=== PATIENT | male | born 1955 ===

== ENCOUNTER 2024-02-26 22:10 | Observation (INO) | payer BC, OTHER ==
[2024-02-26 22:31] VITALS: BMI 25.5
[2024-02-27] MEDS ORDERED: Dextrose 5% in Water 1,000 ML IV PRN (00:34)
[2024-02-27] MEDS ORDERED: Glucagon 1 MG/ML KIT IM PRN (00:34)
[2024-02-27] MEDS ORDERED: Ondansetron ODT 4 MG TAB PO PRN (00:34)
[2024-02-27] MEDS ORDERED: Dextrose 50% Abboject 50 ML SYRINGE SLOW IVP PRN (00:34)
[2024-02-27] MEDS ORDERED: Meclizine HCl 25 MG TAB PO PRN (00:43)
[2024-02-27 04:02] LABS: #Basophils 0.03 10x3/uL (0.0-0.2); %Basophils 0.4 % (0.0-1.0); %Eosinophils 2.3 % (0.0-10.0); %Lymphocytes 25.6 % (21.0-51.0); %Monocytes 6.4 % (0.0-10.0); %Neutrophils 65.1 % (42.0-75.0); Hematocrit 43.7 % (42.0-52.0); Hemoglobin 14.7 g/dL (14.0-18.0); Mean Corpuscular HGB CONC 33.6 g/dL (32.0-36.0); Mean Corpuscular Hemoglobin 30.7 pg (27.0-31.0); Mean Corpuscular Volume 91.2 fL (78.0-98.0); Mean Platelet Volume 10.7 fL (7.4-10.4); Platelet Count 173 10x3/uL (130-400); RBC Distribution Width 13.7 % (11.5-14.5); Red Blood Cell (RBC) Count 4.79 mill/uL (4.70-6.10)
[2024-02-27 04:22] LABS: Anion Gap 14 mmol/L (10-20); BUN (Urea Nitrogen) 11 mg/dL (8.4-25.7); Calc. Creatinine Clearance 75 mL/min (70-130); Calcium 9.1 mg/dL (7.8-10.44); Carbon Dioxide 23 mmol/L (23-31); Cardiac Risk 3.3 (Less than 4.5); Chloride 109 mmol/L (98-107); Cholesterol 87 mg/dl (< 200 Desired); Estimated GFR 80; Glucose 92 mg/dL (80-115); HDL Cholesterol 26 mg/dL (>60 Neg Risk); LDL Cholesterol, Calculated 37 mg/dL; Potassium 4.4 mmol/L (3.5-5.1); Sodium 142 mmol/L (136-145); Triglycerides 119 mg/dL (Less than 150)
[2024-02-27] MEDS: Enoxaparin 40 MG (0.4 mL) SYRINGE SC SCH (09:19)
[2024-02-27] MEDS: metFORMIN 500 MG TAB PO SCH (09:19)
[2024-02-27] MEDS: Aspirin Chewable 81 MG TAB PO SCH (09:19)
[2024-02-27] MEDS: glipiZIDE XL 5 mg ER.TAB PO SCH (09:19)
[2024-02-27 12:26] VITALS: BP 158/72; TEMP 98.5
[2024-02-27] MEDS ORDERED: Atorvastatin Calcium 10 MG TAB PO SCH (17:00)
[2024-02-27] MEDS ORDERED: CLORAZEPATE DIPOTASSIUM 15 MG PO SCH (21:00)
== END 2024-02-27 13:40 | disposition home or self-care (01) ==
LOC: 2SW 22:10
PROVIDERS: ADMIT Family Medicine; ATTEND Family Medicine
DX: H81.13 Benign paroxysmal vertigo, bilateral (principal); I63.9 Cerebral infarction, unspecified; I10 Essential (primary) hypertension; E86.0 Dehydration; E78.5 Hyperlipidemia, unspecified; E11.9 Type 2 diabetes mellitus without complications; Z79.84 Long term (current) use of oral hypoglycemic drugs; Z79.899 Other long term (current) drug therapy; Z79.82 Long term (current) use of aspirin; Z87.891 Personal history of nicotine dependence
CPT/HCPCS: 36415; 36416; 70551; 80048; 80061; 83036; 84443; 85025; 93880; 96372; G0378; J1650